=== PATIENT | male | born 1935 | race Caucasian/White ===

== ENCOUNTER 2016-10-14 11:28 | Outpatient (CLI) | payer MEDICARE, BC ==
[2016-10-14 11:51] LABS: #Basophils 0.2 thou/uL (0.0-0.2); #Eosinphils 0.1 thou/uL (0.0-0.7); #Lymphocytes 1.7 thou/uL (1.20-3.40); #Monocytes 0.6 thou/uL (0.11-0.59); #Neutrophils 3.8 thou/uL (1.40-6.50); %Basophils 2.5 % (0.0-1.0); %Eosinophils 2.2 % (0.0-10.0); %Lymphocytes 26.9 % (21.0-51.0); %Monocytes 8.7 % (0.0-10.0); %Neutrophils 59.7 % (42.0-75.0); Hemoglobin 15.1 g/dL (14.0-18.0); Mean Corpuscular HGB CONC 32.9 g/dL (32.0-36.0); Mean Corpuscular Hemoglobin 30.9 pg (27.0-31.0); Mean Platelet Volume 9.2 fL (7.4-10.4); Platelet Count 141 thou/uL (130-400); RBC Distribution Width 12.9 % (11.5-14.5); Red Blood Cell (RBC) Count 4.88 mill/uL (4.70-6.10); White Blood Cell (WBC) Count 6.4 thou/uL (4.8-10.8)
[2016-10-14 12:06] LABS: Prothrombin Time 22.8 SEC (12.0-14.7)
[2016-10-14 12:25] LABS: ALT (SGPT) 21 U/L (0-55); AST (SGOT) 24 U/L (5-34); Albumin 4.2 g/dL (3.4-4.8); Alkaline Phosphatase 67 U/L (40-150); Bilirubin, Direct 0.6 mg/dL (0.1-0.3); Bilirubin, Total 1.3 mg/dL (0.2-1.2); Cardiac Risk 2.4 (Less than 4.5); Cholesterol 110 mg/dL (< 200 Desired); HDL Cholesterol 45 mg/dL (>60 Neg Risk); LDL Cholesterol, Calculated 54 mg/dL; Protein, Total 7.1 g/dL (5.8-8.1); Triglycerides 55 mg/dL (Less than 150)
== END 2016-10-14 11:29 | disposition home or self-care (01) ==
LOC: MADLABBHPM 11:28
PROVIDERS: ATTEND Family Medicine
DX: I48.91 Unspecified atrial fibrillation (principal)
CPT/HCPCS: 36415; 80061; 80076; 84443; 85025; 85610

== ENCOUNTER 2017-04-20 08:28 | Outpatient (CLI) | payer MEDICARE, BC ==
--- NOTE | 2017-04-20 10:19 | ULT ---
COMPLETE ABDOMINAL ULTRASOUND: Date: 04/20/17 COMPARISON: None. HISTORY: Severe right-sided abdominal pain. TECHNIQUE: Multiplanar Yarbrough scale and color Doppler images were obtained in a complete abdominal ultrasound. FINDINGS: There is a small amount of sludge within the gallbladder. There is also a shadowing calcification wi thin the gallbladder. The gallbladder wall is thickened. There is a small amount of pericholecystic fluid. A positive sonographic Ríos's sign was reported by the technologist. The common bile duct i s normal measuring 4.0 mm. The liver is normal in echogenicity without focal lesions or intrahepatic ductal dilatation. The aor ta and inferior vena cava are normal in caliber. The visualized portions of the pancreas are unremar kable. Spleen is normal in echogenicity without focal lesions and measures 9.8 cm in length. Both kidneys are normal in echogenicity without hydronephrosis or calculi and measure 12.0 and 11.6 cm in length on the right and left, respectively. IMPRESSION: Cholelithiasis with findings suggesting acute cholecystitis. Correlate with LFTs. POS: [facility]
== END 2017-04-20 08:29 | disposition home or self-care (01) ==
LOC: MADULT 08:28
PROVIDERS: ATTEND Family Medicine
DX: R10.9 Unspecified abdominal pain (principal); Z51.81 Encounter for therapeutic drug level monitoring; I48.91 Unspecified atrial fibrillation; K80.20 Calculus of gallbladder without cholecystitis without obstruction; Z79.01 Long term (current) use of anticoagulants
CPT/HCPCS: 76700

== ENCOUNTER 2017-05-08 14:45 | Outpatient (CLI) | payer MEDICARE, BC ==
[2017-05-08 15:21] LABS: Prothrombin Time 23.5 SEC (12.0-14.7)
== END 2017-05-08 14:46 | disposition home or self-care (01) ==
LOC: MADLABBHPM 14:45
PROVIDERS: ATTEND Family Medicine
DX: I48.91 Unspecified atrial fibrillation (principal)
CPT/HCPCS: 36415; 85610

== ENCOUNTER 2017-06-29 11:51 | Outpatient (CLI) | payer MEDICARE, BC ==
[2017-06-29 12:53] LABS: INR-International Normal Ratio 1.8; Prothrombin Time 21.1 SEC (12.0-14.7)
== END 2017-06-29 11:52 | disposition home or self-care (01) ==
LOC: MADLABBHPM 11:51
PROVIDERS: ATTEND Family Medicine
DX: I48.91 Unspecified atrial fibrillation (principal)
CPT/HCPCS: 36415; 85610

== ENCOUNTER 2017-08-17 10:09 | Outpatient (CLI) | payer MEDICARE, BC ==
[2017-08-17 11:07] LABS: #Basophils 0.1 thou/uL (0.0-0.2); #Eosinphils 0.3 thou/uL (0.0-0.7); #Lymphocytes 1.7 thou/uL (1.20-3.40); #Monocytes 0.6 thou/uL (0.11-0.59); #Neutrophils 3.9 thou/uL (1.40-6.50); %Basophils 1.8 % (0.0-1.0); %Eosinophils 4.3 % (0.0-10.0); %Lymphocytes 25.8 % (21.0-51.0); %Monocytes 9.6 % (0.0-10.0); %Neutrophils 58.6 % (42.0-75.0); Hemoglobin 14.4 g/dL (14.0-18.0); Mean Corpuscular HGB CONC 32.1 g/dL (32.0-36.0); Mean Corpuscular Hemoglobin 30.3 pg (27.0-31.0); Mean Corpuscular Volume 94.2 fl (80.0-94.0); Mean Platelet Volume 7.8 fL (7.4-10.4); Platelet Count 148 thou/uL (130-400); RBC Distribution Width 13.6 % (11.5-14.5); Red Blood Cell (RBC) Count 4.74 mill/uL (4.70-6.10); White Blood Cell (WBC) Count 6.6 thou/uL (4.8-10.8)
[2017-08-17 11:10] LABS: INR-International Normal Ratio 1.9; Prothrombin Time 22.5 SEC (12.0-14.7)
[2017-08-17 11:21] LABS: ALT (SGPT) 18 U/L (8-55); AST (SGOT) 20 U/L (5-34); Albumin 3.9 g/dL (3.4-4.8); Alkaline Phosphatase 61 U/L (40-150); Anion Gap 15 mmol/L (10-20); BUN (Urea Nitrogen) 12 mg/dL (8.4-25.7); Bilirubin, Total 1.1 mg/dL (0.2-1.2); Calc. Creatinine Clearance 0 mL/min (70-130); Calcium 8.8 mg/dL (7.8-10.44); Carbon Dioxide 26 mmol/L (23-31); Chloride 105 mmol/L (98-107); Estimated GFR-MDRD 86; Globulin 3.3 g/dL (2.4-3.5); Glucose 93 mg/dL (83-110); Potassium 4.6 mmol/L (3.5-5.1); Protein, Total 7.2 g/dL (5.8-8.1); Sodium 141 mmol/L (136-145)
== END 2017-08-17 10:10 | disposition home or self-care (01) ==
LOC: MADLABBHPM 10:09
PROVIDERS: ATTEND Family Medicine
DX: R10.9 Unspecified abdominal pain (principal); I48.91 Unspecified atrial fibrillation
CPT/HCPCS: 36415; 80053; 85025; 85610

== ENCOUNTER 2018-01-23 14:35 | Outpatient (CLI) | payer MEDICARE, BC ==
[2018-01-23 15:06] LABS: INR-International Normal Ratio 1.5; Prothrombin Time 17.9 SEC (12.0-14.7)
== END 2018-01-23 14:36 | disposition home or self-care (01) ==
LOC: MADLABBHPM 14:35
PROVIDERS: ATTEND Family Medicine
DX: Z51.81 Encounter for therapeutic drug level monitoring (principal); I48.91 Unspecified atrial fibrillation; Z79.01 Long term (current) use of anticoagulants
CPT/HCPCS: 36415; 85610

== ENCOUNTER 2018-02-13 11:09 | Outpatient (CLI) | payer MEDICARE, BC ==
[2018-02-13 11:44] LABS: INR-International Normal Ratio 2.7; Prothrombin Time 28.6 SEC (12.0-14.7)
== END 2018-02-13 11:10 | disposition home or self-care (01) ==
LOC: MADLABBHPM 11:09
PROVIDERS: ATTEND Family Medicine
DX: Z51.81 Encounter for therapeutic drug level monitoring (principal); I48.91 Unspecified atrial fibrillation; Z79.01 Long term (current) use of anticoagulants
CPT/HCPCS: 36415; 85610

== ENCOUNTER 2018-05-14 11:26 | Outpatient (CLI) | payer MEDICARE, BC ==
[2018-05-14 11:56] LABS: INR-International Normal Ratio 1.5
[2018-05-14 12:13] LABS: ALT (SGPT) 22 U/L (8-55); AST (SGOT) 22 U/L (5-34); Albumin 4.2 g/dL (3.4-4.8); Alkaline Phosphatase 67 U/L (40-150); Anion Gap 14 mmol/L (10-20); BUN (Urea Nitrogen) 14 mg/dL (8.4-25.7); Bilirubin, Direct 0.7 mg/dL (0.1-0.3); Bilirubin, Total 1.5 mg/dL (0.2-1.2); Calc. Creatinine Clearance 0 mL/min (70-130); Calcium 9.2 mg/dL (7.8-10.44); Carbon Dioxide 26 mmol/L (23-31); Cardiac Risk 2.3 (Less than 4.5); Chloride 105 mmol/L (98-107); Cholesterol 115 mg/dl (< 200 Desired); Estimated GFR-MDRD 77; Glucose 106 mg/dL (83-110); HDL Cholesterol 49 mg/dL (>60 Neg Risk); LDL Cholesterol, Calculated 56 mg/dL; Potassium 4.6 mmol/L (3.5-5.1); Protein, Total 7.6 g/dL (5.8-8.1); Sodium 140 mmol/L (136-145); Triglycerides 50 mg/dL (Less than 150)
[2018-05-14 17:04] LABS: Hemoglobin A1c 5.6 % (4.0-6.0)
== END 2018-05-14 11:27 | disposition home or self-care (01) ==
LOC: MADLABBHPM 11:26
PROVIDERS: ATTEND Family Medicine
DX: E11.9 Type 2 diabetes mellitus without complications (principal); E78.00 Pure hypercholesterolemia, unspecified; I48.91 Unspecified atrial fibrillation
CPT/HCPCS: 36415; 80048; 80061; 80076; 83036; 85610

== ENCOUNTER 2018-05-23 13:23 | Outpatient (CLI) | payer MEDICARE, BC ==
[2018-05-23 14:00] LABS: INR-International Normal Ratio 1.7; Prothrombin Time 20.2 SEC (12.0-14.7)
[2018-05-23 14:21] LABS: ALT (SGPT) 39 U/L (8-55); AST (SGOT) 27 U/L (5-34); Albumin 4.2 g/dL (3.4-4.8); Alkaline Phosphatase 71 U/L (40-150); Anion Gap 13 mmol/L (10-20); BUN (Urea Nitrogen) 18 mg/dL (8.4-25.7); Bilirubin, Direct 0.7 mg/dL (0.1-0.3); Bilirubin, Total 1.6 mg/dL (0.2-1.2); Calc. Creatinine Clearance 0 mL/min (70-130); Calcium 9.3 mg/dL (7.8-10.44); Carbon Dioxide 27 mmol/L (23-31); Cardiac Risk 2.2 (Less than 4.5); Chloride 103 mmol/L (98-107); Cholesterol 130 mg/dl (< 200 Desired); Estimated GFR-MDRD 73; Glucose 95 mg/dL (83-110); HDL Cholesterol 60 mg/dL (>60 Neg Risk); LDL Cholesterol, Calculated 62 mg/dL; Potassium 4.4 mmol/L (3.5-5.1); Protein, Total 7.3 g/dL (5.8-8.1); Sodium 139 mmol/L (136-145); Triglycerides 42 mg/dL (Less than 150)
[2018-05-23 22:17] LABS: Hemoglobin A1c 5.8 % (4.0-6.0)
== END 2018-05-23 13:24 | disposition home or self-care (01) ==
LOC: MADLABBHPM 13:23
PROVIDERS: ATTEND Family Medicine
DX: Z51.81 Encounter for therapeutic drug level monitoring (principal); I48.91 Unspecified atrial fibrillation; E78.00 Pure hypercholesterolemia, unspecified; E11.9 Type 2 diabetes mellitus without complications; Z79.01 Long term (current) use of anticoagulants
CPT/HCPCS: 36415; 80048; 80061; 80076; 83036; 85610

== ENCOUNTER 2018-07-16 10:21 | Outpatient (CLI) | payer MEDICARE, BC ==
[2018-07-16 10:41] LABS: #Basophils 0.1 thou/uL (0.0-0.2); #Eosinphils 0.1 thou/uL (0.0-0.7); #Lymphocytes 1.7 thou/uL (1.20-3.40); #Monocytes 1.1 thou/uL (0.11-0.59); #Neutrophils 8.1 thou/uL (1.40-6.50); %Basophils 1.3 % (0.0-1.0); %Eosinophils 0.7 % (0.0-10.0); %Lymphocytes 15.3 % (21.0-51.0); %Monocytes 9.6 % (0.0-10.0); %Neutrophils 73.1 % (42.0-75.0); Hemoglobin 12.2 g/dL (14.0-18.0); Mean Corpuscular HGB CONC 33.8 g/dL (32.0-36.0); Mean Corpuscular Hemoglobin 31.8 pg (27.0-31.0); Mean Platelet Volume 6.4 fL (7.4-10.4); Platelet Count 325 thou/uL (130-400); RBC Distribution Width 12.8 % (11.5-14.5); Red Blood Cell (RBC) Count 3.84 mill/uL (4.70-6.10); White Blood Cell (WBC) Count 11.1 thou/uL (4.8-10.8)
[2018-07-16 10:50] LABS: INR-International Normal Ratio 2.2; Prothrombin Time 24.1 SEC (12.0-14.7)
[2018-07-16 10:57] LABS: Anion Gap 15 mmol/L (10-20); BUN (Urea Nitrogen) 27 mg/dL (8.4-25.7); Calc. Creatinine Clearance 0 mL/min (70-130); Calcium 9.4 mg/dL (7.8-10.44); Carbon Dioxide 25 mmol/L (23-31); Chloride 99 mmol/L (98-107); Estimated GFR-MDRD 57; Glucose 142 mg/dL (83-110); Potassium 4.3 mmol/L (3.5-5.1); Sodium 135 mmol/L (136-145)
== END 2018-07-16 10:22 | disposition home or self-care (01) ==
LOC: MADLABBHPM 10:21
PROVIDERS: ATTEND Family Medicine
DX: I48.91 Unspecified atrial fibrillation (principal); E11.9 Type 2 diabetes mellitus without complications
CPT/HCPCS: 36415; 80048; 85025; 85610

== ENCOUNTER 2018-08-16 08:51 | Outpatient (CLI) | payer MEDICARE, BC ==
[2018-08-16 09:18] LABS: #Basophils 0.1 thou/uL (0.0-0.2); #Eosinphils 0.2 thou/uL (0.0-0.7); #Lymphocytes 2.1 thou/uL (1.20-3.40); #Monocytes 0.8 thou/uL (0.11-0.59); %Basophils 1.3 % (0.0-1.0); %Eosinophils 2.5 % (0.0-10.0); %Lymphocytes 22.9 % (21.0-51.0); %Monocytes 8.4 % (0.0-10.0); Hemoglobin 14.2 g/dL (14.0-18.0); Mean Corpuscular HGB CONC 32.1 g/dL (32.0-36.0); Mean Corpuscular Hemoglobin 29.9 pg (27.0-31.0); Mean Corpuscular Volume 92.9 fL (78.0-98.0); Mean Platelet Volume 9.4 fL (7.4-10.4); Platelet Count 190 thou/uL (130-400); RBC Distribution Width 13.2 % (11.5-14.5); Red Blood Cell (RBC) Count 4.74 mill/uL (4.70-6.10); White Blood Cell (WBC) Count 9.3 thou/uL (4.8-10.8)
[2018-08-16 09:22] LABS: INR-International Normal Ratio 2.3; Prothrombin Time 25.2 SEC (12.0-14.7)
[2018-08-16 09:30] LABS: Anion Gap 15 mmol/L (10-20); BUN (Urea Nitrogen) 19 mg/dL (8.4-25.7); Calc. Creatinine Clearance 0 mL/min (70-130); Calcium 9.4 mg/dL (7.8-10.44); Carbon Dioxide 26 mmol/L (23-31); Chloride 101 mmol/L (98-107); Estimated GFR-MDRD 69; Glucose 106 mg/dL (83-110); Potassium 4.2 mmol/L (3.5-5.1); Sodium 138 mmol/L (136-145)
== END 2018-08-16 08:52 ==
LOC: MADLABBHPM 08:51
PROVIDERS: ATTEND Family Medicine
DX: I48.91 Unspecified atrial fibrillation (principal); E11.9 Type 2 diabetes mellitus without complications
CPT/HCPCS: 36415; 80048; 85025; 85610

== ENCOUNTER 2018-09-13 08:29 | Outpatient (CLI) | payer MEDICARE, BC ==
[2018-09-13 09:18] LABS: INR-International Normal Ratio 2.1
[2018-09-13 09:25] LABS: Anion Gap 15 mmol/L (10-20); BUN (Urea Nitrogen) 15 mg/dL (8.4-25.7); Calc. Creatinine Clearance 0 mL/min (70-130); Calcium 9.4 mg/dL (7.8-10.44); Carbon Dioxide 27 mmol/L (23-31); Chloride 103 mmol/L (98-107); Estimated GFR-MDRD 86; Glucose 97 mg/dL (83-110); Potassium 4.3 mmol/L (3.5-5.1); Sodium 141 mmol/L (136-145)
[2018-09-13 09:34] LABS: #Basophils 0.1 thou/uL (0.0-0.2); #Eosinphils 0.3 thou/uL (0.0-0.7); #Lymphocytes 1.9 thou/uL (1.20-3.40); #Monocytes 0.7 thou/uL (0.11-0.59); #Neutrophils 3.6 thou/uL (1.40-6.50); %Basophils 2.1 % (0.0-1.0); %Eosinophils 4.1 % (0.0-10.0); %Lymphocytes 29.4 % (21.0-51.0); %Monocytes 10.1 % (0.0-10.0); %Neutrophils 54.4 % (42.0-75.0); Mean Corpuscular HGB CONC 32.8 g/dL (32.0-36.0); Mean Corpuscular Hemoglobin 30.4 pg (27.0-31.0); Mean Corpuscular Volume 92.5 fL (78.0-98.0); Mean Platelet Volume 8.3 fL (7.4-10.4); Platelet Count 160 thou/uL (130-400); RBC Distribution Width 14.2 % (11.5-14.5); White Blood Cell (WBC) Count 6.6 thou/uL (4.8-10.8)
== END 2018-09-13 08:30 ==
LOC: MADLABBHPM 08:29
PROVIDERS: ATTEND Family Medicine
DX: Z51.81 Encounter for therapeutic drug level monitoring (principal); I48.91 Unspecified atrial fibrillation; N18.9 Chronic kidney disease, unspecified; Z79.01 Long term (current) use of anticoagulants
CPT/HCPCS: 36415; 80048; 85025; 85610

== ENCOUNTER 2018-10-17 12:52 | Outpatient (CLI) | payer MEDICARE, BC ==
[2018-10-17 13:20] LABS: INR-International Normal Ratio 2.3; Prothrombin Time 25.5 SEC (12.0-14.7)
== END 2018-10-17 12:53 | disposition home or self-care (01) ==
LOC: MADLABBHPM 12:52
PROVIDERS: ATTEND Family Medicine
DX: Z51.81 Encounter for therapeutic drug level monitoring (principal); I48.91 Unspecified atrial fibrillation; Z79.01 Long term (current) use of anticoagulants
CPT/HCPCS: 36415; 85610

== ENCOUNTER 2019-02-26 09:54 | Outpatient (CLI) | payer MEDICARE, BC ==
[2019-02-26 10:26] LABS: INR-International Normal Ratio 1.7; Prothrombin Time 20.1 SEC (12.0-14.7)
== END 2019-02-26 09:55 | disposition home or self-care (01) ==
LOC: MADLABBHPM 09:54
PROVIDERS: ATTEND Family Medicine
DX: Z51.81 Encounter for therapeutic drug level monitoring (principal); I48.91 Unspecified atrial fibrillation; Z79.01 Long term (current) use of anticoagulants
CPT/HCPCS: 36415; 85610

== ENCOUNTER 2019-05-17 11:27 | Outpatient (CLI) | payer MEDICARE, BC ==
[2019-05-17 11:53] LABS: INR-International Normal Ratio 1.9; Prothrombin Time 21.6 SEC (12.0-14.7)
[2019-05-17 12:03] LABS: ALT (SGPT) 22 U/L (8-55); AST (SGOT) 22 U/L (5-34); Albumin 3.9 g/dL (3.4-4.8); Alkaline Phosphatase 74 U/L (40-110); Anion Gap 14 mmol/L (10-20); BUN (Urea Nitrogen) 12 mg/dL (8.4-25.7); Bilirubin, Total 1.6 mg/dL (0.2-1.2); Calc. Creatinine Clearance 0 mL/min (70-130); Carbon Dioxide 26 mmol/L (23-31); Cardiac Risk 2.3 (Less than 4.5); Chloride 103 mmol/L (98-107); Cholesterol 108 mg/dl (< 200 Desired); Estimated GFR-MDRD Greater than 90; Globulin 3.1 g/dL (2.4-3.5); Glucose 89 mg/dL (83-110); HDL Cholesterol 46 mg/dL (>60 Neg Risk); LDL Cholesterol, Calculated 51 mg/dL; Potassium 4.6 mmol/L (3.5-5.1); Sodium 138 mmol/L (136-145); Triglycerides 56 mg/dL (Less than 150)
[2019-05-17 12:29] LABS: Hemoglobin 14.7 g/dL (14.0-18.0); Manual Diff?? YES; Mean Corpuscular HGB CONC 30.4 g/dL (32.0-36.0); Mean Corpuscular Hemoglobin 28.9 pg (27.0-31.0); Mean Corpuscular Volume 94.8 fL (78.0-98.0); Mean Platelet Volume 9.9 fL (7.4-10.4); Platelet Count 177 thou/uL (130-400); RBC Distribution Width 13.4 % (11.5-14.5); Red Blood Cell (RBC) Count 5.11 mill/uL (4.70-6.10); White Blood Cell (WBC) Count 6.5 thou/uL (4.8-10.8)
[2019-05-17 12:30] LABS: Lymphocytes 33 % (21-51); MDiff Complete? YES; Monocytes 2 % (0-10); Neutrophil 65 % (42-75)
[2019-05-17 13:02] LABS: #Basophils 0.1 thou/uL (0.0-0.2); #Eosinphils 0.2 thou/uL (0.0-0.7); #Lymphocytes 1.6 thou/uL (1.20-3.40); #Monocytes 0.5 thou/uL (0.11-0.59); #Neutrophils 4.1 thou/uL (1.40-6.50); %Basophils 2.1 % (0.0-1.0); %Eosinophils 3.1 % (0.0-10.0); %Lymphocytes 24.2 % (21.0-51.0); %Monocytes 7.9 % (0.0-10.0); %Neutrophils 62.7 % (42.0-75.0)
[2019-05-17 16:58] LABS: Hemoglobin A1c 5.6 % (4.0-6.0)
[2019-05-17 17:20] LABS: Creatinine, Urine 139.25 mg/dL (63-166); Microalbumin Urine 4.7 mg/dL (0.5-50.0); Microalbumin/Creat Ratio 33.8 mg/g (Less than 30)
== END 2019-05-17 11:28 | disposition home or self-care (01) ==
LOC: MADLABBHPM 11:27
PROVIDERS: ATTEND Family Medicine
DX: E11.9 Type 2 diabetes mellitus without complications (principal); E78.00 Pure hypercholesterolemia, unspecified; E03.9 Hypothyroidism, unspecified; I48.91 Unspecified atrial fibrillation
CPT/HCPCS: 36415; 80053; 80061; 82043; 83036; 84443; 85025; 85610

== ENCOUNTER 2020-01-02 13:19 | Outpatient (CLI) | payer MEDICARE, BC ==
[2020-01-02 14:19] LABS: INR-International Normal Ratio 1.9; Prothrombin Time 22.1 sec (12.0-14.7)
== END 2020-01-02 13:20 | disposition home or self-care (01) ==
LOC: MADLAB 13:19
PROVIDERS: ATTEND Family Medicine
DX: Z51.81 Encounter for therapeutic drug level monitoring (principal); I48.91 Unspecified atrial fibrillation; Z79.01 Long term (current) use of anticoagulants
CPT/HCPCS: 36415; 85610

== ENCOUNTER 2020-05-25 09:15 | Outpatient (CLI) | payer MEDICARE, BC ==
[2020-05-25 09:35] LABS: INR-International Normal Ratio 2.6; Prothrombin Time 28.4 sec (12.0-14.7)
== END 2020-05-25 09:16 | disposition home or self-care (01) ==
LOC: MADLAB 09:15
PROVIDERS: ATTEND Family Medicine
DX: Z51.81 Encounter for therapeutic drug level monitoring (principal); I48.91 Unspecified atrial fibrillation; Z79.01 Long term (current) use of anticoagulants
CPT/HCPCS: 36415; 85610

== ENCOUNTER 2021-03-15 12:13 | Outpatient (CLI) | payer MEDICARE, BC ==
[2021-03-15 12:58] LABS: #Basophils 0.1 thou/uL (0.0-0.2); #Eosinphils 0.2 thou/uL (0.0-0.7); #Lymphocytes 1.6 thou/uL (1.20-3.40); #Monocytes 0.6 thou/uL (0.11-0.59); #Neutrophils 4.1 thou/uL (1.40-6.50); %Basophils 2.1 % (0.0-1.0); %Eosinophils 2.6 % (0.0-10.0); %Lymphocytes 24.6 % (21.0-51.0); %Monocytes 9.3 % (0.0-10.0); %Neutrophils 61.3 % (42.0-75.0); Hemoglobin 14.7 g/dL (14.0-18.0); Mean Corpuscular HGB CONC 31.1 g/dL (32.0-36.0); Mean Corpuscular Volume 93.2 fL (78.0-98.0); Mean Platelet Volume 8.1 fL (7.4-10.4); Platelet Count 159 thou/uL (130-400); RBC Distribution Width 15.1 % (11.5-14.5); Red Blood Cell (RBC) Count 5.07 mill/uL (4.70-6.10); White Blood Cell (WBC) Count 6.6 thou/uL (4.8-10.8)
[2021-03-15 13:01] LABS: ALT (SGPT) 20 U/L (8-55); AST (SGOT) 24 U/L (5-34); Albumin 3.9 g/dL (3.4-4.8); Alkaline Phosphatase 74 U/L (40-110); Anion Gap 12 mmol/L (10-20); BUN (Urea Nitrogen) 14 mg/dL (8.4-25.7); Calc. Creatinine Clearance 0 mL/min (70-130); Calcium 9.5 mg/dL (7.8-10.44); Carbon Dioxide 29 mmol/L (23-31); Cardiac Risk 2.5 (Less than 4.5); Chloride 103 mmol/L (98-107); Cholesterol 109 mg/dl (< 200 Desired); Globulin 3.6 g/dL (2.4-3.5); Glucose 96 mg/dL (83-110); HDL Cholesterol 44 mg/dL (>60 Neg Risk); LDL Cholesterol, Calculated 56 mg/dL; Potassium 4.5 mmol/L (3.5-5.1); Protein, Total 7.5 g/dL (5.8-8.1); Sodium 139 mmol/L (136-145); Triglycerides 45 mg/dL (Less than 150)
[2021-03-15 13:21] LABS: INR-International Normal Ratio 3.8; Prothrombin Time 37.9 sec (12.0-14.7)
[2021-03-16 11:59] LABS: Hemoglobin A1c 5.6 % (4.0-6.0)
== END 2021-03-15 12:14 | disposition home or self-care (01) ==
LOC: MADLAB 12:13
PROVIDERS: ATTEND Family Medicine
DX: Z51.81 Encounter for therapeutic drug level monitoring (principal); I48.91 Unspecified atrial fibrillation; E03.9 Hypothyroidism, unspecified; E78.00 Pure hypercholesterolemia, unspecified; E11.9 Type 2 diabetes mellitus without complications; Z79.01 Long term (current) use of anticoagulants
CPT/HCPCS: 36415; 80053; 80061; 83036; 84443; 85025; 85610

== ENCOUNTER 2021-04-13 11:00 | Outpatient (CLI) | payer MEDICARE, BC ==
[2021-04-13 11:21] LABS: INR-International Normal Ratio 1.8; Prothrombin Time 21.2 sec (12.0-14.7)
== END 2021-04-13 11:01 | disposition home or self-care (01) ==
LOC: MADLAB 11:00
PROVIDERS: ATTEND Family Medicine
DX: Z51.81 Encounter for therapeutic drug level monitoring (principal); I48.91 Unspecified atrial fibrillation; Z79.01 Long term (current) use of anticoagulants
CPT/HCPCS: 36415; 85610

== ENCOUNTER 2021-12-16 13:08 | Outpatient (CLI) | payer MEDICARE, BC ==
[2021-12-16 13:27] LABS: INR-International Normal Ratio 2.7; Prothrombin Time 29.5 sec (12.0-14.7)
== END 2021-12-16 13:09 | disposition home or self-care (01) ==
LOC: MADLAB 13:08
PROVIDERS: ATTEND Family Medicine
DX: I48.91 Unspecified atrial fibrillation (principal)
CPT/HCPCS: 36415; 85610

== ENCOUNTER 2022-04-04 12:45 | Outpatient (CLI) | payer MEDICARE, BC ==
[2022-04-04 13:21] LABS: INR-International Normal Ratio 1.9; Prothrombin Time 22.2 sec (12.0-14.7)
== END 2022-04-04 12:46 | disposition home or self-care (01) ==
LOC: MADLAB 12:45
PROVIDERS: ATTEND Family Medicine
DX: I48.91 Unspecified atrial fibrillation (principal)
CPT/HCPCS: 36415; 85610

== ENCOUNTER 2022-04-14 14:50 | Outpatient (CLI) | payer MEDICARE, BC ==
[2022-04-14 15:23] LABS: INR-International Normal Ratio 1.9; Prothrombin Time 21.9 sec (12.0-14.7)
== END 2022-04-14 14:51 | disposition home or self-care (01) ==
LOC: MADLAB 14:50
PROVIDERS: ATTEND Family Medicine
DX: Z51.81 Encounter for therapeutic drug level monitoring (principal); I48.91 Unspecified atrial fibrillation; Z79.01 Long term (current) use of anticoagulants
CPT/HCPCS: 36415; 85610

== ENCOUNTER 2022-08-17 12:07 | Outpatient (CLI) | payer MEDICARE, BC ==
[2022-08-17 12:47] LABS: INR-International Normal Ratio 5.2
[2022-08-17 13:35] LABS: Prothrombin Time 50.5 sec (12.0-14.7)
== END 2022-08-17 12:08 | disposition home or self-care (01) ==
LOC: MADRAD 12:07
PROVIDERS: ATTEND Internal Medicine
DX: Z51.81 Encounter for therapeutic drug level monitoring (principal); I48.91 Unspecified atrial fibrillation; J40 Bronchitis, not specified as acute or chronic; J90 Pleural effusion, not elsewhere classified; R91.8 Other nonspecific abnormal finding of lung field; Z79.01 Long term (current) use of anticoagulants
CPT/HCPCS: 36415; 71046; 85610

== ENCOUNTER 2022-10-26 14:20 | Outpatient (CLI) | payer MEDICARE, BC | END 2022-10-26 14:21 | disposition home or self-care (01) | LOC: MADRAD 14:20 | PROVIDERS: ATTEND Internal Medicine Cardiovascular Disease | DX: R06.02 Shortness of breath (principal) | CPT/HCPCS: 71046 ==